=== PATIENT | male | born 1990 | race Caucasian/White ===

== ENCOUNTER 2016-05-27 07:28 | Day surgery (SDC) | payer OTHER ==
[~2016-05-27] VITALS: Ht 193 cm; Wt 89.0 kg
[2016-05-27 08:18] VITALS: BP 120/80
[2016-05-27] MEDS ORDERED: SODIUM CHLORIDE 0.9% 1,000 ML IV SCH (08:18)
[2016-05-27] MEDS ORDERED: PLEASE ENTER HEIGHT AND WEIGHT MC SCH (08:30)
[2016-05-27 08:43] LABS: HEMOGLOBIN 18.1 g/dL (13.7-18.0)
[2016-05-27] MEDS ORDERED: LIDOCAINE 2%, 20ML ONE (09:12)
[2016-05-27] MEDS ORDERED: MIDAZOLAM 1 MG/ML, 5ML ONE (09:29)
[2016-05-27] MEDS ORDERED: NALOXONE 1 MG/ML, 2ML ONE (09:30)
[2016-05-27] MEDS ORDERED: FENTANYL PF 100 MCG/2ML ONE (09:30)
== END 2016-05-27 11:10 | disposition home or self-care (01) ==
LOC: OUT 07:28
PROVIDERS: ATTEND Specialist
DX: D45 Polycythemia vera (principal); F17.210 Nicotine dependence, cigarettes, uncomplicated; Z72.89 Other problems related to lifestyle; F41.9 Anxiety disorder, unspecified
CPT/HCPCS: 36415; 38221; 77012; 85025; 85097; 88237; 88264; 88280; 88305; 88311; G0364; J2250; J3010; J7030; 88313; 99156; 99157; J3490; J2310